=== PATIENT | male | born 1930 | race Asian ===

== ENCOUNTER 2016-08-22 10:39 | Emergency (ER) | payer MEDICARE, MEDICAID ==
[~2016-08-22] VITALS: Ht 167.6 cm; Wt 74.0 kg
[~2016-08-22 10:39] MED LIST: DILT120T PO; MELO-267 PO; SIMV40TA5 PO
[2016-08-22 11:56] LABS: BASOPHILS % (AUTO) 0.2 % (0.0-2.0); EOSINOPHILS % (AUTO) 1.6 % (1.0-6.0); HEMATOCRIT 38.9 % (41-53); HEMOGLOBIN 12.5 g/dL (13.5-17.5); LYMPHOCYTES # (AUTO) 0.7 K/uL (1.0-4.8); LYMPHOCYTES % (AUTO) 11.1 % (22.0-44.0); MEAN CORPUSCULAR HGB CONC 32.1 G/dL (31.0-37.0); MEAN CORPUSCULAR VOLUME 93 fL (80-100); MONOCYTES # (AUTO) 0.4 K/uL (0.1-1.0); MONOCYTES % (AUTO) 5.7 % (2.0-9.0); NEUTROPHILS # (AUTO) 5.3 K/uL (1.8-7.7); NEUTROPHILS % (AUTO) 81.4 % (40.0-70.0); PLATELET COUNT (AUTO) 161 K/uL (150-450); RED BLOOD CELL COUNT(AUTO) 4.17 MIL/uL (4.50-5.90); RED CELL DISTRIBUTION WIDTH 13.2 % (11.5-14.5); WHITE BLOOD COUNT (AUTO) 6.6 K/uL (4.5-11.0)
[2016-08-22 12:07] LABS: CALCIUM, TOTAL 8.6 mg/dL (8.8-10.5); CREATININE 1.47 mg/dL (0.60-1.30); POTASSIUM 4.1 mmol/L (3.5-5.1)
[2016-08-22 12:11] LABS: ALBUMIN 3.7 g/dL (3.4-5.0); BILIRUBIN,TOTAL 0.7 mg/dL (0.1-1.0); TOTAL PROTEIN, SERUM 7.9 g/dL (6.4-8.2)
[2016-08-22 12:12] LABS: APPEARANCE,URINE CLEAR (CLEAR); GLUCOSE, URINE (UA) NEGATIVE (NEGATIVE); KETONES,URINE NEGATIVE (NEGATIVE); LEUKOCYTE ESTERASE ,URINE NEGATIVE (NEGATIVE); OCCULT BLOOD,URINE SMALL (NEGATIVE); PROTEIN,URINE POS 1+ (NEGATIVE)
[2016-08-22 12:22] LABS: ADD UA MICROSCOPIC YES
[2016-08-22 12:23] LABS: SQUAMOUS EPITHELIAL CELL,UR Few /LPF (None Seen); WBC,URINE None Seen /HPF (0-5)
[2016-08-22] MEDS ORDERED: MECLIZINE HCL 25 MG TABLET PO ONE (12:30)
[2016-08-22] MEDS ORDERED: SODIUM CHLORIDE 0.9% 1,000 ML IV ONE (12:30)
[2016-08-22 13:00] VITALS: BP 149/72
== END 2016-08-22 13:22 | disposition home or self-care (01) ==
LOC: EMS 10:40
DX: E86.0 Dehydration (principal); R55 Syncope and collapse; Z87.891 Personal history of nicotine dependence
CPT/HCPCS: 36415; 80053; 81001; 83880; 84484; 85025; 93005; 96360; 99285; J7030

== ENCOUNTER → 2017-02-03 | Outpatient (CLI) | payer OTHER, MEDICAID ==
[~2017-02-03] MED LIST changes: +AMLO-511 PO; +ATOR20TA86 PO; +DICL250 PO; -DILT120T PO; +FLUT16H NASAL; +LOSA50TA37 PO; -MELO-267 PO; -SIMV40TA5 PO; +TAMS0.4C32 PO; +UMEC1DIS IH; +VITAD1000 PO
== END | disposition home or self-care (01) ==
LOC: RADPV 12:41
PROVIDERS: ATTEND Internal Medicine
DX: M51.36 Other intervertebral disc degeneration, lumbar region (principal); M51.37 Other intervertebral disc degeneration, lumbosacral region; M47.816 Spondylosis without myelopathy or radiculopathy, lumbar region; M46.06 Spinal enthesopathy, lumbar region; M48.54XA Collapsed vertebra, not elsewhere classified, thoracic region, initial encounter for fracture
CPT/HCPCS: 72100

== ENCOUNTER 2017-03-15 10:47 | Emergency (ER) | payer OTHER ==
[~2017-03-15] VITALS: Ht 170.2 cm; Wt 72.7 kg
[2017-03-15] MEDS ORDERED: DICL250 PO (10:54)
[2017-03-15] MEDS ORDERED: AMLO-511 PO (10:54)
[2017-03-15] MEDS ORDERED: TAMS0.4C32 PO (10:54)
[2017-03-15] MEDS ORDERED: LOSA50TA37 PO (10:54)
[2017-03-15] MEDS ORDERED: ATOR20TA86 PO (10:54)
[2017-03-15] MEDS ORDERED: FLUT16H NASAL (10:54)
[2017-03-15] MEDS ORDERED: VITAD1000 PO (10:54)
[2017-03-15] MEDS ORDERED: UMEC1DIS IH (10:55)
[2017-03-15 13:12] VITALS: BP 154/81
[2017-03-15 14:08] LABS: BASOPHILS % (AUTO) 0.3 % (0.0-2.0); EOSINOPHILS % (AUTO) 1.4 % (1.0-6.0); HEMATOCRIT 34.7 % (41-53); HEMOGLOBIN 11.7 g/dL (13.5-17.5); LYMPHOCYTES # (AUTO) 0.9 K/uL (1.0-4.8); LYMPHOCYTES % (AUTO) 19.2 % (22.0-44.0); MEAN CORPUSCULAR HEMOGLOBIN 30.8 pg (26.0-34.0); MEAN CORPUSCULAR HGB CONC 33.8 G/dL (31.0-37.0); MEAN CORPUSCULAR VOLUME 91 fL (80-100); MONOCYTES # (AUTO) 0.7 K/uL (0.1-1.0); MONOCYTES % (AUTO) 14.4 % (2.0-9.0); NEUTROPHILS % (AUTO) 64.7 % (40.0-70.0); PLATELET COUNT (AUTO) 285 K/uL (150-450); RED BLOOD CELL COUNT(AUTO) 3.81 MIL/uL (4.50-5.90); RED CELL DISTRIBUTION WIDTH 12.7 % (11.5-14.5); WHITE BLOOD COUNT (AUTO) 4.7 K/uL (4.5-11.0)
== END 2017-03-15 14:41 | disposition home or self-care (01) ==
LOC: EMS 10:54
DX: R04.0 Epistaxis (principal); I10 Essential (primary) hypertension; Z87.891 Personal history of nicotine dependence
CPT/HCPCS: 99283